=== PATIENT | male | born 1980 | race Asian ===

== ENCOUNTER → 2021-09-16 | Outpatient (CLI) | payer OTHER ==
[~2021-09-16] MED LIST: IOHEXOL 350 MG/ML 100 ML VIAL. IV ONE
--- NOTE | 2021-09-16 16:50 | RAD ---
EXAMINATION: CTA CHEST CLINICAL HISTORY: Right chest pain and dyspnea. History of Covid in August. Technique: Spiral CT acquisition of the chest from the thoracic inlet to the upper abdomen following IV contrast with coronal and sagittal reformatted images also provided for review. 3D maximum intensi ty projection images also performed. CT Dose Reduction Employed: One or more of the following individualized dose reduction techniques wer e utilized for this examination: 1. Automated exposure control 2. Adjustment of the mA and/or kV ac cording to patient size 3. Use of iterative reconstruction technique. COMPARISON: None FINDINGS: Pulmonary Vasculature: No evidence of main, lobar, or segmental pulmonary arterial thrombus. Lung Parenchyma, Pleura, and Airways: Minimal dependent subsegmental atelectasis bilaterally. No foca l consolidation. No pleural effusion. Central airways patent. Lower Neck, Lymph Nodes, and Mediastinum: Visualized thyroid gland within normal limits. No mediastin al, hilar, or axillary lymphadenopathy. Heart, Pericardium, and Thoracic Vessels: Cardiac chambers normal in size. No pericardial effusion. T horacic aorta within normal limits. No coronary artery atherosclerotic calcifications are noted, alth ough the study is not optimized for coronary assessment. Bones and Soft Tissues: Mild degenerative changes in the thoracic spine. Subcentimeter sclerotic dens ity in the right posterolateral T10 vertebral body, nonspecific but favors a bone island. Upper Abdomen: Partially visualized upper abdomen unremarkable. IMPRESSION: No evidence of main, lobar, or segmental pulmonary embolism. Electronically signed by: Romeo Mahoney DO (09/16/2021 4:47 PM) [id number]
== END ==
LOC: RAD 15:50
PROVIDERS: ATTEND Clinical Nurse Specialist Family Health
DX: J98.11 Atelectasis (principal); M47.814 Spondylosis without myelopathy or radiculopathy, thoracic region; Z86.16 Personal history of COVID-19
CPT/HCPCS: 71275; Q9967